=== PATIENT | male | born 1995 | race African-American/Black ===

== ENCOUNTER 2018-03-06 15:24 | Emergency (ER) | payer BC ==
[2018-03-06 16:06] LABS: AMPHETAMINE/METHAMPHETAMINE NEG (NEG); BARBITURATES NEG (NEG); BENZODIAZEPINES NEG (NEG); CANNABINOIDS POS (NEG); COCAINE POS (NEG); ETHANOL, URINE POS (NEG); METHADONE NEG (NEG); OPIATES NEG (NEG); PHENCYCLIDINE NEG (NEG)
[2018-03-06 16:11] LABS: ADD MAN DIFF? NO
[2018-03-06 16:14] LABS: BASO % 1 % (0-3); EOS # 0.4 x10^3/uL (0.0-0.7); EOS % 7 % (0-3); HEMATOCRIT 46.8 % (39.0-53.0); HEMOGLOBIN 16.4 g/dL (13.0-17.5); LYMPH # 1.4 x10^3/uL (1.0-4.8); LYMPH % 21 % (24-48); MEAN CORPUSCULAR HEMOGLOBIN 33 pg (25-35); MEAN CORPUSCULAR HGB CONC 35 g/dL (31-37); MEAN CORPUSCULAR VOLUME 94 fL (79-100); MONO # 0.6 x10^3/uL (0.0-1.1); MONO % 9 % (0-9); NEUT % 62 % (31-73); PLATELET COUNT 242 x10^3/uL (140-400); RED BLOOD COUNT 4.99 x10^6/uL (4.30-5.70); WHITE BLOOD COUNT 6.4 x10^3/uL (4.0-11.0)
[2018-03-06 16:23] LABS: ANION GAP 3 (6-14); BLOOD UREA NITROGEN 8 mg/dL (8-26); BUN/CREATININE RATIO 7 (6-20); CALCIUM 9.4 mg/dL (8.5-10.1); CARBON DIOXIDE 33 mmol/L (21-32); CHLORIDE 103 mmol/L (98-107); CREATININE 1.1 mg/dL (0.7-1.3); GFR 101.3; GLUCOSE 94 mg/dL (70-99); POTASSIUM 4.3 mmol/L (3.5-5.1); SODIUM 139 mmol/L (136-145)
[2018-03-06 16:27] LABS: ACETAMIN < 2 mcg/ml (10-30); SALIC < 2.8 mg/dL (2.8-20.0)
[2018-03-06 16:30] LABS: ALBUMIN 3.9 g/dL (3.4-5.0); ALK PHOS 103 U/L (46-116); ALT (SGPT) 19 U/L (16-63); AST (SGOT) 15 U/L (15-37); TOTAL BILIRUBIN 0.3 mg/dL (0.2-1.0); TOTAL PROTEIN 7.9 g/dL (6.4-8.2)
[2018-03-06 16:36] LABS: FREE T4 1.07 ng/dL (0.76-1.46)
[2018-03-06 16:36] LABS: THYROID STIM HORMONE (TSH) 2.833 uIU/mL (0.358-3.74)
[2018-03-06 16:45] LABS: ETHANOL < 10 mg/dL (0-10)
== END 2018-03-06 18:07 | disposition home or self-care (01) ==
LOC: ER 15:24
DX: F32.9 Major depressive disorder, single episode, unspecified (principal); R45.6 Violent behavior
CPT/HCPCS: 36415; 80053; 80307; 80329; 84439; 84443; 85025; 99284; G0480; G6039